=== PATIENT | female | born 1960 | race Caucasian/White ===

== ENCOUNTER 2022-06-09 12:22 | Emergency (ER) | payer BC ==
[~2022-06-09] VITALS: Ht 165.1 cm; Wt 63.5 kg
[2022-06-09 12:42] VITALS: BP_SYST 90
[2022-06-09 13:22] LABS: BILIRUBIN,URINE 2+ (NEGATIVE); BLOOD, URINE NEGATIVE (NEGATIVE); CLARITY/URINE SL CLOUDY (CLEAR); COLOR,URINE ORANGE (YELLOW); GLUCOSE,URINE NEGATIVE (NEGATIVE); KETONES,URINE 2+ (NEGATIVE); LEUKOCYTE ESTERASE ,URINE 3+ (NEGATIVE); NITRITE, URINE NEGATIVE (NEGATIVE); PH,URINE 6.5 (5.0-8.0); PROTEIN URINE 1+ (NEGATIVE)
[2022-06-09 13:52] LABS: BASOPHILS % (AUTO) 0.4 % (0.0-2.0); EOSINOPHILS % (AUTO) 0.2 % (0.0-4.0); HEMATOCRIT 35.8 % (36-48); HEMOGLOBIN 12.2 g/dL (12.0-16.0); LYMPHOCYTES % (AUTO) 13.9 % (20.5-51.5); MEAN CORPUSCULAR HEMOGLOBIN 28 pg (27-31); MEAN CORPUSCULAR HGB CONC 34 % (32-36); MEAN CORPUSCULAR VOLUME 81 fL (79.0-98.0); MONOCYTES # (AUTO) 0.8 K/uL (0.0-1.0); MONOCYTES % (AUTO) 10.1 % (1.7-9.3); NEUTROPHILS # (AUTO) 5.7 K/uL (1.8-7.7); NEUTROPHILS % (AUTO) 75.4 % (40.0-70.0); PLATELET COUNT (AUTO) 298 K/uL (130-430); RED BLOOD CELL COUNT(AUTO) 4.41 MIL/uL (4.2-6.2); RED CELL DISTRIBUTION WIDTH 14.4 % (9.0-15.0); WHITE BLOOD COUNT (AUTO) 7.5 K/uL (4.8-10.8)
[2022-06-09 13:53] LABS: ANION GAP 8 (5-15); CALCIUM 9.1 mg/dL (8.4-11.0); CHLORIDE 100 mmol/L (98-107); CREATININE 0.72 mg/dL (0.55-1.30); GLUCOSE 129 mg/dL (70-99); POTASSIUM 3.1 mmol/L (3.5-5.1); UREA NITROGEN, BLOOD 10 mg/dL (8-21)
[2022-06-09 14:02] LABS: ALANINE AMINOTRANSFERASE 10 U/L (12-78); ALBUMIN 2.8 g/dL (3.4-4.8); ASPARTATE AMINOTRANSFERASE 21 U/L (10-37); TOTAL BILIRUBIN 0.6 mg/dL (0.0-1.0)
[2022-06-09 14:05] LABS: BACTERIA,URINE RARE /HPF (None Seen)
[2022-06-09 14:06] LABS: MUCUS,URINE 2+ /LPF (None Seen)
[2022-06-09 14:13] LABS: GFR AFRICAN AMERICAN 106 mL/min (>90)
--- NOTE | 2022-06-09 14:17 | NUR ---
Patient to ER bed 08 to gown for evaluation. Side rails up.
--- NOTE | 2022-06-09 14:20 | NUR ---
Pt brought by family, A&Ox4, pt presents to ER with weakness and poor appetite for one year, pt states she was at [facility] for [facility], pt denies N/V/D, skin pink and warm, cap refill <3, VSS.
--- NOTE | 2022-06-09 14:31 | NUR ---
RECEIVED PT FROM [facility]. PT HAS C/O DEPRESSION AND GENERALIZED WEAKNESS. PT IS AAOX4. ON R/A. DENIES N/V/D/C. SKIN WARM, INTACT, NO PERIPHERAL EDEMA NOTED, PERIPHERAL PULSES NORMAL. PT DENIES PAIN SIDRAILS UP X2.
--- NOTE | 2022-06-09 14:35 | NUR ---
SHAYY COSTA REPORTS PT'S URINE OBTAINED AND TAKEN TO LAB.
--- NOTE | 2022-06-09 15:50 | NUR ---
DR. WASHINGTON AT BEDSIDE TO DISCUSS POC.
[2022-06-09] MEDS ORDERED: AMOX-423 PO (15:59)
[2022-06-09] MEDS ORDERED: POTA-197 PO (15:59)
[2022-06-09] MEDS ORDERED: POTASSIUM CHLORIDE 20 MEQ/PKT PACKET PO ONE (16:00)
[2022-06-09] MEDS ORDERED: AMOXICILLIN/POTASSIUM CLAV 875 MG TABLET PO ONE (16:00)
[2022-06-09] MEDS ORDERED: NACL 0.9% 1,000 ML IV ONE (16:30)
--- NOTE | 2022-06-09 16:33 | NUR ---
EKG SHOWS PT TACHYCARDIC, HR 110S. NS 1000 BOLUS INITIATED ORDERED. TO BE COMPLETED AT 1734.
--- NOTE | 2022-06-09 17:35 | NUR ---
Patient given written and verbal discharge instructions and verbalizes understanding. ER MD discussed with patient the results and treatment provided. Patient in stable condition. ID arm band removed. IV catheter removed intact and dressing applied, no active bleeding. Rx of KDUR, AUGMENTIN given. Patient educated on pain management and to follow up with PMD. Pain Scale 0/10. Opportunity for questions provided and answered. Medication side effect fact sheet provided.
[2022-06-09 17:40] VITALS: BP_SYST 105
== END 2022-06-09 17:35 | disposition home or self-care (01) ==
LOC: SED 12:22
DX: N39.0 Urinary tract infection, site not specified (principal); E87.6 Hypokalemia; R53.1 Weakness; R11.0 Nausea; Z79.899 Other long term (current) drug therapy
CPT/HCPCS: 99285; 96360; 71045; 80053; 81000; 85025; 87086; 84484; 36415; 93005; J7030